=== PATIENT | male | born 1955 | race American Indian/Alaskan Native ===

== ENCOUNTER 2018-04-29 02:05 | Emergency (ER) | payer OTHER ==
[2018-04-29] MEDS ORDERED: ZOFRAN IV ONE (02:31)
[2018-04-29] MEDS ORDERED: MORPHINE IV ONE (02:31)
--- NOTE | 2018-04-29 02:36 | Emergency Department Report ---
ED Back Pain/Injury HPI - General Chief Complaint: Back Pain/Injury Stated Complaint: BACK PAIN Time Seen by Provider: 04/29/18 02:25 Source: patient, family, EMS Limitations: Physical Limitation - History of Present Illness Initial Comments: Patient is 62 years old male with history of hypertension and chronic kidney disease. Patient presented to the ER complaining of back pain for the last 3 days. Patient stated that pain is sharp with no radiation. Pain increases with movement. Patient does not remember the mechanism of injury. He denied any fever, nausea or vomiting. He also denied any urinary symptoms. Patient denied any weakness, numbness or tingling sensation. No bowel or bladder incontinence. MD Complaint: back pain -: days(s) Similar Symptoms Previously: No Place: home Radiation: none Severity: moderate Severity scale (0 -10): 6 Quality: sharp Improves With: immobilization Worsens With: movement Context: while lifting, turning/twisting, bending Associated Symptoms: denies other symptoms - Related Data Allergies Allergy/AdvReac Type Severity Reaction Status Date / Time No Known Allergies Allergy Unverified 10/28/13 10:08 ED Review of Systems ROS: Stated complaint: BACK PAIN Other details as noted in HPI Comment: All other systems reviewed and negative Constitutional: denies: chills, fever Respiratory: denies: cough, orthopnea, shortness of breath, SOB with exertion, SOB at rest, wheezing Cardiovascular: denies: chest pain, palpitations, dyspnea on exertion Gastrointestinal: denies: abdominal pain, nausea, vomiting, diarrhea, constipation, hematemesis, melena, hematochezia Musculoskeletal: back pain. denies: joint swelling, arthralgia, myalgia Neurological: denies: headache, weakness, numbness, paresthesias, confusion, abnormal gait ED Past Medical Hx - Past Medical History Previous Medical History?: Yes Hx Hypertension: Yes Hx Renal Disease: Yes Hx HIV: Yes - Surgical History Past Surgical History?: No - Social History Smoking Status: Never Smoker Substance Use Type: Prescribed ED Physical Exam - General Limitations: Physical Limitation General appearance: alert, in no apparent distress - Head Head exam: Present: atraumatic, normocephalic, normal inspection - Eye Eye exam: Present: normal appearance - ENT ENT exam: Present: normal exam, normal orophraynx, mucous membranes moist - Neck Neck exam: Present: normal inspection, full ROM. Absent: tenderness, meningismus, lymphadenopathy, thyromegaly - Respiratory Respiratory exam: Present: normal lung sounds bilaterally. Absent: respiratory distress, wheezes, rales, rhonchi, chest wall tenderness, accessory muscle use, decreased breath sounds, prolonged expiratory - Cardiovascular Cardiovascular Exam: Present: regular rate, normal rhythm, normal heart sounds - GI/Abdominal GI/Abdominal exam: Present: soft, normal bowel sounds. Absent: distended, tenderness, guarding, rebound, rigid, organomegaly, mass, bruit, pulsatile mass, hernia - Extremities Exam Extremities exam: Present: normal inspection, full ROM, normal capillary refill. Absent: pedal edema, calf tenderness - Back Exam Back exam: Present: normal inspection, CVA tenderness (R), CVA tenderness (L), muscle spasm, paraspinal tenderness. Absent: full ROM, tenderness, vertebral tenderness, rash noted - Neurological Exam Neurological exam: Present: alert, oriented X3, CN II-XII intact, normal gait, reflexes normal - Skin Skin exam: Present: warm, intact, normal color ED Course Vital Signs 04/29/18 04/29/18 04/29/18 02:05 02:50 03:00 Temperature 98.9 F Pulse Rate 85 80 Respiratory 16 16 Rate Blood Pressure 148/86 131/98 Blood Pressure 148/86 [Left] O2 Sat by Pulse 98 Oximetry 04/29/18 04/29/18 03:16 03:30 Temperature Pulse Rate 82 77 Respiratory 13 20 Rate Blood Pressure 133/91 133/91 Blood Pressure [Left] O2 Sat by Pulse Oximetry ED Medical Decision Making - Lab Data Result diagrams: 04/29/18 02:40 04/29/18 02:40 - Radiology Data Radiology results: report reviewed CT abdomen and pelvis showed no acute finding. - Medical Decision Making Patient stated that he is feeling much better. Urine is positive for infection. CT abdomen and pelvis is negative. Labs reviewed as negative. Patient received morphine and Zofran. She also received Rocephin 1 g. I will discharge the patient on ciprofloxacin twice a day for 10 days and I advised him to follow up with his primary care physician in the next 2-3 days. Critical care attestation.: If time is entered above; I have spent that time in minutes in the direct care of this critically ill patient, excluding procedure time. ED Disposition Clinical Impression: Bilateral flank pain, UTI (urinary tract infection) Disposition: TO HOME OR SELFCARE Is pt being admited?: No Condition: Stable Instructions: Urinary Tract Infection in Men (ED), Flank Pain (ED) Referrals: PRIMARY CARE, [Referring] - 3-5 Days
[2018-04-29 02:56] LABS: Basophils % (Auto) 0.3 % (0.0-1.8); Eosinophils # (Auto) 0.1 K/mm3 (0.0-0.4); Eosinophils % (Auto) 0.8 % (0.0-4.3); Hematocrit 38.4 % (35.5-45.6); Hemoglobin 12.9 gm/dl (11.8-15.2); Lymphocytes # (Auto) 2.6 K/mm3 (1.2-5.4); Lymphocytes % (Auto) 24.7 % (13.4-35.0); Mean Corpuscular HGB Conc 34 % (32-34); Mean Corpuscular Volume 79 fl (84-94); Monocytes # (Auto) 1.2 K/mm3 (0.0-0.8); Monocytes % (Auto) 11.6 % (0.0-7.3); Platelet Count 304 K/mm3 (140-440); Red Blood Count 4.88 M/mm3 (3.65-5.03)
[2018-04-29 03:11] LABS: Albumin 3.1 g/dL (3.9-5); BUN/Creatinine Ratio 19; Blood Urea Nitrogen 25 mg/dL (9-20); Hemolysis Index 251
[2018-04-29 03:19] LABS: Bilirubin,Direct < 0.2 mg/dL (0-0.2)
[2018-04-29 03:21] LABS: Alanine Aminotransferase 25 units/L (7-56)
[2018-04-29 03:40] LABS: Bilirubin,Urine NEG (Negative); Blood,Urine NEG (Negative); Color,Urine Yellow (Yellow); Protein,Urine <15 mg/dL mg/dL (Negative); Urobilinogen,Urine < 2.0 mg/dL (<2.0)
[2018-04-29 04:13] VITALS: BP 133/91
--- NOTE | 2018-04-29 04:25 | Cat Scan Report ---
FINAL REPORT EXAM: CT ABDOMEN PELVIS WO CON HISTORY: VENKATESH flank pain TECHNIQUE: Routine axial imaging was obtained of the abdomen and pelvis without oral or IV contrast. Sagittal and coronal reconstructions were reviewed. FINDINGS: Lung bases reveal mild dependent atelectasis in both lower lobes. Pleural fluid is not seen. The liver is normal size and reveal several calcified granulomas in both hepatic lobes. The gallbladd er and biliary tree appear normal. The pancreas and adrenal glands appear normal. The spleen is rhea l in size reveals calcified granulomas. The kidneys show no evidence of stones or hydronephrosis. The bowel loops are normal in caliber and course. There is a moderate amount retained fecal content. The appendix is not enlarged. There is a small umbilical hernia containing omental fat. There is no evid ence of free fluid or adenopathy. In the pelvis the prostate gland is mildly enlarged. The bladder ap pears normal. The skeletal structures reveal multilevel disc degeneration in the lumbar spine. IMPRESSION: No acute process in the abdomen and pelvis. No evidence of renal stones or hydronephrosis. No evidence of appendicitis. Mild prostatic enlargement. Small umbilical hernia containing omental fat. Multilevel disc degeneration in the lumbar spine
[2018-04-29] MEDS ORDERED: ROCEPHIN/NS 1 GM/50 ML 1 GM/50 ML BAG IV ONE (04:28)
== END 2018-04-29 05:14 | disposition home or self-care (01) ==
LOC: ED 02:05
DX: N39.0 Urinary tract infection, site not specified (principal); I12.9 Hypertensive chronic kidney disease with stage 1 through stage 4 chronic kidney disease, or unspecified chronic kidney disease; N18.9 Chronic kidney disease, unspecified; R10.9 Unspecified abdominal pain; Z21 Asymptomatic human immunodeficiency virus [HIV] infection status
CPT/HCPCS: 36415; 74176; 80048; 80076; 81001; 85025; 96365; 96375; 99284; J0696; J2270; J2405